=== PATIENT | male | born 1975 ===

== ENCOUNTER 2016-12-08 12:13 | Emergency (ER) | payer SELFPAY ==
--- NOTE | 2016-12-08 13:08 | ED PDOC ---
Syncope/Near Syncope/Dizziness Time Seen by Provider: 12/08/16 12:31 Chief Complaint (Nursing): Dizziness/Lightheaded Chief Complaint (Provider): dizziness History Per: Patient History/Exam Limitations: no limitations Onset/Duration Of Symptoms: Days (x 2 days ) Additional Complaint(s): Rikki Garsia is a 41 year old male, with a past medical history of diabetes and hypertension, who presents to the ED for evaluation of dizziness associated with headache, feeling tired and feeling anxious ongoing for 2 days. Patient denies any fever, shortness of breath or chest pain. He reports symptoms are consistent with previous symptoms which have occurred once every 6 month for the past 2 years and were diagnosed as panic attacks. PMD: [facility] Past Medical History Reviewed: Historical Data, Nursing Documentation, Vital Signs Vital Signs: Last Vital Signs Temp 99.1 F 12/08/16 12:25 Pulse 73 12/08/16 12:25 Resp 16 12/08/16 12:25 BP 128/71 12/08/16 12:25 Pulse Ox 99 12/08/16 12:25 - Medical History PMH: Diabetes (type II), HTN, Hypercholesterolemia Denies: Hepatitis, HIV, Seizures, Sexually Transmitted Disease - Family History Family History: States: Unknown Family Hx - Home Medications Home Medications: Ambulatory Orders Medication Instructions Recorded Glyburide [Glyburide] 1 tab PO DAILY 03/27/15 Lisinopril [Zestril] 5 mg PO DAILY 03/27/15 Metformin ER [Glucophage XR] 1 tab PO DAILY 03/27/15 Propranolol [Inderal] 10 mg PO BID PRN #10 tab 03/27/15 Azithromycin [Zithromax] 250 mg PO DAILY #6 tablet 05/10/15 Promethazine/Codeine 5 ml PO Q8 #60 ml 05/10/15 [Codeine/Promethazine 10 MG/5 Ml-6.25 MG/5 Ml] Ondansetron ODT [Zofran ODT] 4 mg PO TID #21 odt 11/07/15 - Allergies Allergies/Adverse Reactions: Allergies Allergy/AdvReac Type Severity Reaction Status Date / Time No Known Allergies Allergy Verified 06/15/15 12:29 Review of Systems ROS Statement: Except As Marked, All Systems Reviewed And Found Negative Constitutional: Negative for: Fever Cardiovascular: Negative for: Chest Pain Respiratory: Negative for: Shortness of Breath Neurological: Positive for: Dizziness Psych: Positive for: Anxiety Physical Exam - Reviewed Nursing Documentation Reviewed: Yes Vital Signs Reviewed: Yes - Physical Exam Appears: Positive for: Well, Non-toxic, No Acute Distress Head Exam: Positive for: ATRAUMATIC, NORMAL INSPECTION, NORMOCEPHALIC Skin: Positive for: Normal Color, Warm, DRY Eye Exam: Positive for: EOMI, Normal appearance, PERRL ENT: Positive for: Normal ENT Inspection Neck: Positive for: Normal, Painless ROM Cardiovascular/Chest: Positive for: Regular Rate, Rhythm Respiratory: Positive for: CNT, Normal Breath Sounds Gastrointestinal/Abdominal: Positive for: Normal Exam, Bowel Sounds, Soft Back: Positive for: Normal Inspection Extremity: Positive for: Normal ROM Neurologic/Psych: Positive for: Alert, Oriented. Negative for: Motor/Sensory Deficits - Laboratory Results Result Diagrams: 12/08/16 13:34 12/08/16 13:30 - ECG O2 Sat by Pulse Oximetry: 99 (RA) Pulse Ox Interpretation: Normal Medical Decision Making Medical Decision Making: Initial impression: light headedness, anxiety Initial Plan: * CT head w/o contrast * EKG * labs * urine dipstick * accu-check * urinalysis * reevaluation Accession No. : [id number] Patient Name / ID : PACO MIRELES / [id number] Exam Date : 12/08/2016 13:30:56 ( Approved ) Study Comment : Sex / Age : M / 41Y Creator : Jamey Snell MD Dictator : Jamey Snell MD Manager Wealth Management : Mill Manager : Jamey Snell MD Approver2 : Report Date : 12/08/2016 13:56:58 My Comment : PROCEDURE: CT HEAD WITHOUT CONTRAST. HISTORY: Lightheadedness COMPARISON: 06/21/2016 TECHNIQUE: Axial computed tomography images were obtained through the head/brain without intravenous contrast. Radiation dose: Total exam DLP = 777.76 mGy-cm. This CT exam was performed using one or more of the following dose reduction techniques: Automated exposure control, adjustment of the mA and/or kV according to patient size, and/or use of iterative reconstruction technique. FINDINGS: HEMORRHAGE: No intracranial hemorrhage. BRAIN: No mass effect or edema. No atrophy or chronic microvascular ischemic changes. VENTRICLES: Unremarkable. No hydrocephalus. CALVARIUM: Unremarkable. PARANASAL SINUSES: Unremarkable as visualized. No significant inflammatory changes. MASTOID AIR CELLS: Unremarkable as visualized. No inflammatory changes. OTHER FINDINGS: None. IMPRESSION: Normal CT of the Head. No intracranial mass, hemorrhage or evidence of acute infarct. Scribe Attestation: Documented by Joyce Stauffer, acting as a scribe for Joyce Golden MD. Provider Scribe Attestation: All medical record entries made by the Scribe were at my direction and personally dictated by me. I have reviewed the chart and agree that the record accurately reflects my personal performance of the history, physical exam, medical decision making, and the department course for this patient. I have also personally directed, reviewed, and agree with the discharge instructions and disposition. Disposition - Clinical Impression Clinical Impression: Lightheadedness - Disposition Referrals: [facility] [Outside] Disposition: Routine/Home Disposition Time: 17:46 Condition: STABLE Instructions: Lightheadedness (ED) Forms: [employer] (Turkmen) Print Language: LEBANESE
[2016-12-08 13:38] LABS: BASO # 0.1 K/uL (0.0-0.2); BASO % 1.3 % (0.0-2.0); EOS # 0.1 K/uL (0.0-0.7); EOS % 1.6 % (0.0-4.0); HEMATOCRIT 42.1 % (35.0-51.0); LYMPH # 2.9 K/uL (1.0-4.3); LYMPH % 36.9 % (20.0-40.0); MEAN CELL VOLUME 83.8 fl (80.0-94.0); MEAN CORPUSCULAR HGB CONC 33.4 g/dL (33.0-37.0); MEAN PLATELET VOLUME 9.3 fl (7.2-11.7); MONO # 0.5 K/uL (0.0-0.8); MONO % 6.6 % (0.0-10.0); NEUT # 4.2 K/uL (1.8-7.0); NEUT % 53.6 % (50.0-75.0); RED CELL DISTRIBUTION WIDTH 13.4 % (11.5-14.5); WHITE BLOOD COUNT 7.8 K/uL (4.8-10.8)
[2016-12-08 13:54] LABS: ALB/GLOB RATIO 1.4 (1.0-2.1); ALKALINE PHOSPHATASE 118 U/L (38-126); ALT/SGPT 53 U/L (21-72); AST/SGOT 30 U/L (17-59); BILIRUBIN,TOTAL 0.4 mg/dl (0.2-1.3); BLOOD UREA NITROGEN 11 mg/dl (9-20); CALCIUM 8.9 mg/dL (8.4-10.2); CARBON DIOXIDE 24 mmol/L (22-30); CHLORIDE 102 mmol/L (98-107); GFR AFRICAN-AMERICAN > 60; GLUCOSE,RANDOM 248 mg/dL (75-110); POTASSIUM 3.9 MMOL/L (3.6-5.0); SODIUM 138 mmol/l (132-148); TOTAL PROTEIN 7.3 G/DL (6.3-8.2)
--- NOTE | 2016-12-08 13:58 | CT ---
PROCEDURE: CT HEAD WITHOUT CONTRAST. HISTORY: Lightheadedness COMPARISON: 06/21/2016 TECHNIQUE: Axial computed tomography images were obtained through the head/brain without intravenous contrast. Radiation dose: Total exam DLP = 777.76 mGy-cm. This CT exam was performed using one or more of the following dose reduction techniques: Automated exposure control, adjustment of the mA and/or kV according to patient size, and/or use of iterative reconstruction technique. FINDINGS: HEMORRHAGE: No intracranial hemorrhage. BRAIN: No mass effect or edema. No atrophy or chronic microvascular ischemic changes. VENTRICLES: Unremarkable. No hydrocephalus. CALVARIUM: Unremarkable. PARANASAL SINUSES: Unremarkable as visualized. No significant inflammatory changes. MASTOID AIR CELLS: Unremarkable as visualized. No inflammatory changes. OTHER FINDINGS: None. IMPRESSION: Normal CT of the Head. No intracranial mass, hemorrhage or evidence of acute infarct.
[2016-12-08] MEDS ORDERED: Sodium Chloride 0.9% 1,000 ML IV STA (14:03)
[2016-12-08 14:10] LABS: RBC URINE 2 /hpf (0-3); URINE BILIRUBIN NEGATIVE (NEGATIVE); URINE BLOOD NEGATIVE (NEGATIVE); URINE COLOR STRAW (YELLOW); URINE GLUCOSE (UA) >=500 mg/dL (Normal); URINE KETONE NEGATIVE (NEGATIVE); URINE LEUKOCYTE ESTERASE NEG Leu/uL (Negative); URINE PROTEIN NEGATIVE (NEGATIVE); URINE UROBILINOGEN 0.2-1.0 mg/dL (0.2-1.0); WBC URINE < 1 /hpf (0-5)
[2016-12-08 18:22] VITALS: BP 130/69; PULSE 82; RESP 18; TEMP 98
--- NOTE | 2016-12-09 08:21 | CARD ---
APPROVED REPORT EKG Measurement Heart [id number] <Conclusion> Sinus bradycardia QRS widening suggests RV conduction delay. Otherwise normal ECG
[2016-12-10 18:53] VITALS: O2SAT 99
== END 2016-12-08 18:22 | disposition home or self-care (01) ==
LOC: H.ER 12:13
DX: R42 Dizziness and giddiness (principal); E11.9 Type 2 diabetes mellitus without complications; E78.00 Pure hypercholesterolemia, unspecified; F41.9 Anxiety disorder, unspecified; I10 Essential (primary) hypertension; Z79.84 Long term (current) use of oral hypoglycemic drugs

== ENCOUNTER 2017-05-27 18:44 | Emergency (ER) | payer SELFPAY ==
[2017-05-27 18:56] VITALS: BP 133/83; PULSE 96; RESP 18; TEMP 99.3; O2SAT 99
--- NOTE | 2017-05-27 19:28 | ED PDOC ---
HPI: CCC, URI, Sore Throat Time Seen by Provider: 05/27/17 19:03 Chief Complaint (Nursing): ENT Problem Chief Complaint (Provider): Sore throat x 2 days History Per: Patient History/Exam Limitations: no limitations Have you had recent travel within the past 21 days to any of the following countries: [place], [place], [place] or [place]?: No Onset/Duration Of Symptoms: Days Current Symptoms Are (Timing): Still Present Location Of Pain: None Sick Contacts (Context): None Additional Complaint(s): 41 yo male with DM presents with sore throat for 2 days and tactile fever. No chest pain, no SOB. Past Medical History Reviewed: Historical Data, Nursing Documentation, Vital Signs Vital Signs: Last Vital Signs Temp 99.3 F 05/27/17 18:53 Pulse 96 H 05/27/17 18:53 Resp 18 05/27/17 18:53 BP 133/83 05/27/17 18:53 Pulse Ox 99 05/27/17 23:32 - Medical History PMH: Diabetes (type II), HTN, Hypercholesterolemia Denies: Hepatitis, HIV, Seizures, Sexually Transmitted Disease - Surgical History Surgical History: No Surg Hx - Family History Family History: States: Unknown Family Hx - Home Medications Home Medications: Ambulatory Orders Medication Instructions Recorded Glyburide [Glyburide] 1 tab PO DAILY 03/27/15 Lisinopril [Zestril] 5 mg PO DAILY 03/27/15 Metformin ER [Glucophage XR] 1 tab PO DAILY 03/27/15 Propranolol [Inderal] 10 mg PO BID PRN #10 tab 03/27/15 Azithromycin [Zithromax] 250 mg PO DAILY #6 tablet 05/10/15 Promethazine/Codeine 5 ml PO Q8 #60 ml 05/10/15 [Codeine/Promethazine 10 MG/5 Ml-6.25 MG/5 Ml] Ondansetron ODT [Zofran ODT] 4 mg PO TID #21 odt 11/07/15 Amoxicillin 875 mg PO BID #20 tab 05/27/17 - Allergies Allergies/Adverse Reactions: Allergies Allergy/AdvReac Type Severity Reaction Status Date / Time No Known Allergies Allergy Verified 06/15/15 12:29 Review of Systems ROS Statement: Except As Marked, All Systems Reviewed And Found Negative Constitutional: Positive for: Fever (Tactile ). Negative for: Chills ENT: Positive for: Throat Pain Skin: Negative for: Rash Physical Exam - Reviewed Nursing Documentation Reviewed: Yes Vital Signs Reviewed: Yes - Physical Exam Appears: Positive for: Well, Non-toxic, No Acute Distress Head Exam: Positive for: ATRAUMATIC, NORMAL INSPECTION, NORMOCEPHALIC Skin: Positive for: Normal Color, Warm, DRY Eye Exam: Positive for: Normal appearance ENT: Positive for: Pharynx Is ((+) erythema ). Negative for: Normal ENT Inspection Neck: Positive for: Normal, Painless ROM Cardiovascular/Chest: Positive for: Regular Rate, Rhythm Respiratory: Positive for: CNT, Normal Breath Sounds Gastrointestinal/Abdominal: Positive for: Normal Exam, Soft Back: Positive for: Normal Inspection Extremity: Positive for: Normal ROM Neurologic/Psych: Positive for: Alert, Oriented - ECG O2 Sat by Pulse Oximetry: 99 Disposition - Clinical Impression Clinical Impression: Pharyngitis - Patient ED Disposition Is Patient to be Admitted: No - Disposition Disposition: Routine/Home Disposition Time: 19:28 Condition: GOOD Prescriptions: Amoxicillin 875 mg PO BID #20 tab Instructions: Sore Throat in Adults Forms: [employer] (Moldovan) Print Language: BENGALI
== END 2017-05-27 19:47 | disposition home or self-care (01) ==
LOC: H.ER 18:44
DX: J02.9 Acute pharyngitis, unspecified (principal); E11.9 Type 2 diabetes mellitus without complications; Z79.84 Long term (current) use of oral hypoglycemic drugs; E78.00 Pure hypercholesterolemia, unspecified; I10 Essential (primary) hypertension

== ENCOUNTER 2018-03-07 21:51 | Emergency (ER) | payer SELFPAY ==
[2018-03-07 22:12] VITALS: BP 137/76; PULSE 84; RESP 16; TEMP 98; O2SAT 97
--- NOTE | 2018-03-07 23:27 | ED PDOC ---
HPI: Skin/Bite Injury Time Seen by Provider: 03/07/18 22:38 Chief Complaint (Nursing): Abnormal Skin Integrity Chief Complaint (Provider): Anal fissure History Per: Patient History/Exam Limitations: no limitations Onset/Duration Of Symptoms: Days (three) Current Symptoms Are (Timing): Still Present (Pt presents to the ED complaining of anal pain that has been persistent for approximatley four days and gets worse immediately following a bowel movement; pt indicates that earlier in the week he was mildly constipated) Past Medical History Reviewed: Historical Data, Nursing Documentation, Vital Signs Vital Signs: Last Vital Signs Temp 98 F 03/07/18 22:09 Pulse 84 03/07/18 22:09 Resp 16 03/07/18 22:09 BP 137/76 03/07/18 22:09 Pulse Ox 97 03/07/18 22:09 - Medical History PMH: Diabetes (type II), HTN, Hypercholesterolemia Denies: Hepatitis, HIV, Seizures, Sexually Transmitted Disease - Family History Family History: States: Unknown Family Hx - Home Medications Home Medications: Ambulatory Orders Medication Instructions Recorded Glyburide 1 tab PO DAILY 03/27/15 Lisinopril [Zestril] 5 mg PO DAILY 03/27/15 MetFORMIN ER [Glucophage XR] 1 tab PO DAILY 03/27/15 Propranolol [Inderal] 10 mg PO BID PRN #10 tab 03/27/15 Azithromycin [Zithromax] 250 mg PO DAILY #6 tablet 05/10/15 Promethazine/Codeine 5 ml PO Q8 #60 ml 05/10/15 [Codeine/Promethazine 10 MG/5 Ml-6.25 MG/5 Ml] Ondansetron ODT [Zofran ODT] 4 mg PO TID #21 odt 11/07/15 Amoxicillin 875 mg PO BID #20 tab 05/27/17 Lidocaine/Aloe Vera 1 gm TP QID #227 gm 03/07/18 [Aloe-Lidocaine 0.5% Gel] Psyllium Husk [Metamucil] 4.5 gm PO BID #425 gr 03/07/18 - Allergies Allergies/Adverse Reactions: Allergies Allergy/AdvReac Type Severity Reaction Status Date / Time No Known Allergies Allergy Verified 03/07/18 22:08 Review of Systems ROS Statement: Except As Marked, All Systems Reviewed And Found Negative Gastrointestinal: Positive for: Rectal Pain Physical Exam - Reviewed Nursing Documentation Reviewed: Yes Vital Signs Reviewed: Yes - Physical Exam Appears: Positive for: Well Head Exam: Positive for: ATRAUMATIC, NORMAL INSPECTION Skin: Positive for: Normal Color Eye Exam: Positive for: Normal appearance Cardiovascular/Chest: Positive for: Regular Rate, Rhythm Respiratory: Positive for: Normal Breath Sounds Rectal: Positive for: Tenderness (Small <0.5cm fissure in the anal verge; there is no bleeding, no infection, swelling, with mild surrounding erythema and no streaking) - ECG O2 Sat by Pulse Oximetry: 97 Disposition - Clinical Impression Clinical Impression: Anal fissure Doctor Will See Patient In The: Office Counseled Patient/Family Regarding: Studies Performed, Diagnosis, Need For Followup, Rx Given - Disposition Referrals: [facility] [Outside] Disposition: Routine/Home Disposition Time: 23:28 Condition: STABLE Prescriptions: Lidocaine/Aloe Vera [Aloe-Lidocaine 0.5% Gel] 1 gm TP QID #227 gm Psyllium Husk [Metamucil] 4.5 gm PO BID #425 gr Instructions: Anal Fissure, Anal Fissure (DC) Forms: [employer] (Georgian), [facility] ED School/Work Excuse
== END 2018-03-07 23:37 | disposition home or self-care (01) ==
LOC: H.ER 21:51
DX: K60.2 Anal fissure, unspecified (principal)